=== PATIENT | male | born 1995 | race Caucasian/White ===

== ENCOUNTER → 2016-10-06 | Outpatient (REF) | payer BC | LOC: M LAB REF 16:17 | DX: J02.9 Acute pharyngitis, unspecified (principal) ==

== ENCOUNTER 2017-05-05 22:29 | Emergency (ER) | payer BC ==
[~2017-05-05] VITALS: Ht 167.6 cm; Wt 97.7 kg
[2017-05-05] MEDS ORDERED: ALBU17IN INH (22:44)
[2017-05-05 23:22] VITALS: BP 138/73
== END 2017-05-05 23:50 | disposition home or self-care (01) ==
LOC: M ED 22:29
DX: L70.0 Acne vulgaris (principal); J45.909 Unspecified asthma, uncomplicated; Z88.8 Allergy status to other drugs, medicaments and biological substances

== ENCOUNTER → 2019-12-08 | Outpatient (CLI) | payer BC ==
[~2019-12-08] MED LIST: ALBU17IN INH
--- NOTE | 2019-12-09 04:43 | REP ---
Clinical: Chronic heel pain. Pain. Technique: Lateral and axial views of the right calcaneus. Findings: A small calcaneal heal spur is identified. The calcaneus and associated joint spaces are otherwise intact and normal. The surrounding soft tissues are unremarkable. Impression: Small calcaneal heal spur. Electronically Signed by Lucio Pinto MD 12/09/2019 04:34 A
== END ==
LOC: M WUC 15:25
PROVIDERS: ATTEND Family Medicine
DX: M79.671 Pain in right foot (principal)

== ENCOUNTER → 2020-10-15 | Outpatient (CLI) | payer BC ==
--- NOTE | 2020-10-15 09:49 | REP ---
INDICATION: RIGHT HAND NON DISPLACED FX. COMPARISON: None. TECHNIQUE: Axial noncontrast images through the right hand with coronal and sagittal reformations. FINDINGS: There appears to be a comminuted fracture involving the distal aspect of the hamate bone with small comminuted fracture fragments and possible small associated fracture fragment from the base of the 4th and 5th metacarpal bones. Overlying posttraumatic soft tissue swelling noted. Remainder of the osseous structures and joint spaces appear relatively normal/age-appropriate. IMPRESSION: There is a comminuted fracture along the distal aspect of the hamate bone with small adjacent comminuted fracture fragments possibly also arising from the base of the 4th and 5th metacarpal bones. <Electronically signed by Lucio Pinto > 10/15/20 [id number]
== END ==
LOC: M RAD 09:07
PROVIDERS: ATTEND Physician Assistant
DX: S62.346D Nondisplaced fracture of base of fifth metacarpal bone, right hand, subsequent encounter for fracture with routine healing (principal); S62.144D Nondisplaced fracture of body of hamate [unciform] bone, right wrist, subsequent encounter for fracture with routine healing

== ENCOUNTER → 2024-12-16 | Outpatient (REF) | payer OTHER | LOC: M SFHCLERA 09:58 | PROVIDERS: ATTEND Internal Medicine | DX: E66.09 Other obesity due to excess calories (principal) ==

== ENCOUNTER → 2024-12-17 | Outpatient (CLI) | payer OTHER ==
[2024-12-17 15:54] LABS: BASO % 0.7 % (0.0-1.0); EOS # 0.1 10^3/uL (0.0-0.5); EOS % 3.2 % (0.0-3.0); HEMATOCRIT 44.4 % (42.0-52.0); HEMOGLOBIN 14.6 g/dl (13.5-17.5); LYMPH % 50.4 % (24.0-44.0); MEAN CORPUSCULAR HEMOGLOBIN 30.3 pg (27.0-33.0); MEAN CORPUSCULAR HGB CONC 32.9 g/dl (32.0-36.5); MEAN CORPUSCULAR VOLUME 92.1 fl (80.0-96.0); MONO # 0.6 10^3/uL (0.0-0.8); MONO % 15.4 % (2.0-8.0); NEUTROPHILS # 1.2 10^3/uL (1.5-8.5); NEUTROPHILS % 30.3 % (36.0-66.0); PLATELET COUNT, AUTOMATED 218 10^3/uL (150-450); RED BLOOD COUNT 4.82 10^6/uL (4.30-6.10)
[2024-12-17 15:59] LABS: ALBUMIN 3.7 G/DL (3.2-5.2); ALKALINE PHOSPHATASE 77 U/L (40-129); ALT/SGPT 72 U/L (7.0-40); AST/SGOT 38 U/L (<34); BILIRUBIN,TOTAL 0.6 MG/DL (0.3-1.2); BLOOD UREA NITROGEN 13 MG/DL (9-23); CALCIUM LEVEL 8.5 MG/DL (8.5-10.1); CARBON DIOXIDE LEVEL 28 MMOL/L (20-31); CHLORIDE LEVEL 106 MMOL/L (98-107); CHOLESTEROL LEVEL 169 MG/DL (<200); CHOLESTEROL RISK RATIO 6.01 (<5); CREATININE FOR GFR 0.73 MG/DL (0.70-1.30); GLOMERULAR FILTRATION RATE > 90.0 (>60); GLUCOSE, FASTING 106 MG/DL (60-100); HDL CHOLESTEROL 28.1 MG/DL (>40); LDL CHOLESTEROL 118.1 MG/DL (<100); NON-HDL-C 140.9 MG/DL; POTASSIUM SERUM 3.8 MMOL/L (3.5-5.1); SODIUM LEVEL 143 MMOL/L (136-145); TOTAL PROTEIN 6.7 G/DL (5.7-8.2); TRIGLYCERIDES LEVEL 114 MG/DL (<150)
[2024-12-17 16:31] LABS: HEPATITIS C VIRUS ABY INDEX 0.12 INDEX (<0.8)
[2024-12-17 16:53] LABS: HEMOGLOBIN A1c 5.9 % (4.0-6.0)
== END ==
LOC: M PLALAB 11:22
PROVIDERS: ATTEND Internal Medicine
DX: E66.09 Other obesity due to excess calories (principal)

== ENCOUNTER → 2025-04-08 | Outpatient (CLI) | payer OTHER ==
[2025-04-08 15:14] LABS: HEPATITIS B SURFACE ANTIBODY NEGATIVE (POSITIVE)
[2025-04-08 15:57] LABS: ALT/SGPT 46 U/L (7.0-40); AST/SGOT 26 U/L (<34); CALCIUM LEVEL 9.8 MG/DL (8.5-10.1); CARBON DIOXIDE LEVEL 23 MMOL/L (20-31); CHLORIDE LEVEL 109 MMOL/L (98-107); CREATININE FOR GFR 0.73 MG/DL (0.70-1.30); GLOMERULAR FILTRATION RATE > 90.0 (>60); POTASSIUM SERUM 4.1 MMOL/L (3.5-5.1); SODIUM LEVEL 144 MMOL/L (136-145)
[2025-04-09 12:24] LABS: HEPATITIS B CORE ANTIBODY IGG NON-REACTIVE (NON-REACTIVE)
[2025-04-12 07:57] LABS: APOLIPOPROTEIN B/A-1 RATIO 1.10 (<0.77)
== END ==
LOC: M PLALAB 09:04
PROVIDERS: ATTEND Internal Medicine
DX: E78.2 Mixed hyperlipidemia (principal); R94.5 Abnormal results of liver function studies

== ENCOUNTER → 2025-05-22 | Outpatient (CLI) | payer OTHER | LOC: M SLEEP HO 11:12 | PROVIDERS: ATTEND Internal Medicine | DX: R53.83 Other fatigue (principal) ==

== ENCOUNTER → 2025-07-31 | Outpatient (CLI) | payer OTHER | LOC: M CARPUL 13:31 | PROVIDERS: ATTEND Internal Medicine | DX: Z82.41 Family history of sudden cardiac death (principal); I34.0 Nonrheumatic mitral (valve) insufficiency; I36.1 Nonrheumatic tricuspid (valve) insufficiency; I37.1 Nonrheumatic pulmonary valve insufficiency ==